=== PATIENT | female | born 1960 | race American Indian/Alaskan Native ===

== ENCOUNTER 2017-05-30 02:27 | Emergency (ER) | payer MEDICAID ==
[2017-05-30] MEDS ORDERED: DUONEB *Not for PRN Use IH ONE ×3 (03:35→06:10)
--- NOTE | 2017-05-30 05:02 | XRay Report ---
FINAL REPORT PROCEDURE: XR CHEST ROUTINE 2V TECHNIQUE: PA and lateral chest radiographs were obtained. CPT 51338 HISTORY: cough COMPARISON: No prior studies are available for comparison. FINDINGS: Heart: Normal. Mediastinum/Vessels: Normal. Lungs/Pleural space: Normal. Bony thorax: No acute osseous abnormality. Other: IMPRESSION: Normal examination.
--- NOTE | 2017-05-30 05:40 | Emergency Department Report ---
- General Chief Complaint: Upper Respiratory Infection Stated Complaint: COUGH, CONGESTION Time Seen by Provider: 05/30/17 05:25 Source: patient Mode of arrival: Ambulatory Limitations: No Limitations - History of Present Illness Initial Comments: 57-year-old female past medical history COPD, smoker presents with complaint of 2 days of persistent cough. Denies chest pain palpitations pleuritic chest pain fevers chills. Patient speaking in full sentences no audible wheezing or stridor. Patient denies nausea or vomiting. States she needs a refill on albuterol inhaler and wants something for persistent cough. Speaking full sentences accompanied by boyfriend at bedside. Patient denies any history of intubations for asthma. States she was last in the ED for asthma/COPD 6 months ago. MD Complaint: cough -: days(s) Severity: moderate Quality: dull Consistency: constant Improves With: nothing - Related Data Home Medications Medication Instructions Recorded Confirmed Last Taken ALBUTEROL Inhaler [ProAir HFA 2 puff IH Q6H 05/30/17 05/30/17 Unknown Inhaler] Flovent Diskus 2 puff IH BID 05/30/17 05/30/17 Unknown Previous Rx's Medication Instructions Recorded Last Taken Type Albuterol Sulfate [Ventolin Hfa] 1 puff IH Q4H PRN #1 hfa.aer.ad 05/30/17 Unknown Rx Benzonatate [Tessalon Perles] 100 mg PO Q8HR PRN #30 capsule 05/30/17 Unknown Rx Levofloxacin [Levaquin TAB] 750 mg PO QDAY #4 tablet 05/30/17 Unknown Rx Phenylephrine/Dm/Acetaminop/GG 10 ml PO Q6H PRN #1 liquid 05/30/17 Unknown Rx [Mucinex Cxlr-Xeb-Ygndncuxic Lq] predniSONE [Deltasone] 40 mg PO QDAY #10 tab 05/30/17 Unknown Rx Allergies Allergy/AdvReac Type Severity Reaction Status Date / Time No Known Allergies Allergy Verified 05/30/17 05:37 ED Review of Systems ROS: Stated complaint: COUGH, CONGESTION Other details as noted in HPI Constitutional: denies: chills, fever Eyes: denies: eye pain, eye discharge, vision change ENT: denies: ear pain, throat pain Respiratory: cough, wheezing. denies: shortness of breath Cardiovascular: denies: chest pain, palpitations Endocrine: no symptoms reported Gastrointestinal: denies: abdominal pain, nausea, diarrhea Genitourinary: denies: urgency, dysuria, discharge Musculoskeletal: denies: back pain, joint swelling, arthralgia Skin: denies: rash, lesions Neurological: denies: headache, weakness, paresthesias Psychiatric: denies: anxiety, depression Hematological/Lymphatic: denies: easy bleeding, easy bruising ED Past Medical Hx - Past Medical History Hx COPD: Yes - Surgical History Additional Surgical History: Right Pinky and right foot hardware - Social History Smoking Status: Current Every Day Smoker Substance Use Type: None - Medications Home Medications: Home Medications Medication Instructions Recorded Confirmed Last Taken Type ALBUTEROL Inhaler [ProAir HFA 2 puff IH Q6H 05/30/17 05/30/17 Unknown History Inhaler] Albuterol Sulfate [Ventolin Hfa] 1 puff IH Q4H PRN #1 hfa.aer.ad 05/30/17 Unknown Rx Benzonatate [Tessalon Perles] 100 mg PO Q8HR PRN #30 capsule 05/30/17 Unknown Rx Flovent Diskus 2 puff IH BID 05/30/17 05/30/17 Unknown History Levofloxacin [Levaquin TAB] 750 mg PO QDAY #4 tablet 05/30/17 Unknown Rx Phenylephrine/Dm/Acetaminop/GG 10 ml PO Q6H PRN #1 liquid 05/30/17 Unknown Rx [Mucinex Aqqc-Jpm-Fkiwfgowve Lq] predniSONE [Deltasone] 40 mg PO QDAY #10 tab 05/30/17 Unknown Rx ED Physical Exam - General Limitations: No Limitations General appearance: alert, in no apparent distress - Head Head exam: Present: atraumatic, normocephalic - Eye Eye exam: Present: normal appearance, PERRL, EOMI - ENT ENT exam: Present: mucous membranes moist - Neck Neck exam: Present: normal inspection - Respiratory Respiratory exam: Present: wheezes (fine wheezing left lung field). Absent: respiratory distress - Cardiovascular Cardiovascular Exam: Present: regular rate, normal rhythm. Absent: systolic murmur, diastolic murmur, rubs, gallop - GI/Abdominal GI/Abdominal exam: Present: soft, normal bowel sounds - Extremities Exam Extremities exam: Present: normal inspection - Back Exam Back exam: Present: normal inspection - Neurological Exam Neurological exam: Present: alert, oriented X3 - Psychiatric Psychiatric exam: Present: normal affect, normal mood - Skin Skin exam: Present: warm, dry, intact, normal color. Absent: rash ED Course Vital Signs 05/30/17 05/30/17 03:46 05:39 Temperature 97.9 F 98.3 F Pulse Rate 87 83 Respiratory 24 19 Rate Blood Pressure 118/57 137/59 O2 Sat by Pulse 96 98 Oximetry ED Medical Decision Making - Medical Decision Making A/P: Acute bronchitis, COPD exacerbatio, reactive airway disease 1-refill on albuterol, course of prednisone, empiric coverage with Levaquin 2-Mucinex when necessary, Tessalon Perles when necessary 3-follow-up with primary care doctor. I advised patient that she needs to quit smoking as she is still actively smoking despite having COPD 4-vital signs stable and patient clinically stable for discharge 5-flu swab negative strep swab negative chest x-ray unremarkable Critical care attestation.: If time is entered above; I have spent that time in minutes in the direct care of this critically ill patient, excluding procedure time. ED Disposition Clinical Impression: Acute bronchitis Qualifiers: Bronchitis organism: unspecified organism Qualified Code(s): J20.9 - Acute bronchitis, unspecified Disposition: DC-01 TO HOME OR SELFCARE Is pt being admited?: No Does the pt Need Aspirin: No Condition: Stable Instructions: Acute Bronchitis (ED), Emphysema (ED), Chronic Obstructive Pulmonary Disease (ED), Chronic Bronchitis (ED) Prescriptions: Albuterol Sulfate [Ventolin Hfa] 1 puff IH Q4H PRN #1 hfa.aer.ad PRN Reason: Wheezing Benzonatate [Tessalon Perles] 100 mg PO Q8HR PRN #30 capsule PRN Reason: Cough Levofloxacin [Levaquin TAB] 750 mg PO QDAY #4 tablet Phenylephrine/Dm/Acetaminop/GG [Mucinex Gitm-Naa-Nepkcfqasl Lq] 10 ml PO Q6H PRN #1 liquid PRN Reason: Cough predniSONE [Deltasone] 40 mg PO QDAY #10 tab Referrals: DEBBI ELENA MD [Primary Care Provider] - 3-5 Days [facility] [Outside] - 3-5 Days [facility] [Outside] - 3-5 Days Forms: Accompanied Note Time of Disposition: 05:45
[2017-05-30] MEDS ORDERED: DELTASONE PO ONE (05:41)
[2017-05-30] MEDS ORDERED: GUAIFENESIN DM SYRUP PO ONE (05:41)
[2017-05-30] MEDS ORDERED: LEVAQUIN PO ONE (05:41)
[2017-05-30 05:44] VITALS: BP 137/59
== END 2017-05-30 06:47 | disposition home or self-care (01) ==
LOC: ED 02:27
DX: J20.9 Acute bronchitis, unspecified (principal); F17.200 Nicotine dependence, unspecified, uncomplicated
CPT/HCPCS: 71046; 87116; 87400; 87430; 94640; 99284; J7512

== ENCOUNTER 2018-08-30 01:07 | Emergency (ER) | payer MEDICAID ==
[2018-08-30 01:47] LABS: Basophils # (Auto) 0.1 K/mm3 (0.0-0.1); Basophils % (Auto) 0.5 % (0.0-1.8); Eosinophils % (Auto) 0.4 % (0.0-4.3); Hematocrit 41.4 % (30.3-42.9); Hemoglobin 13.8 gm/dl (10.1-14.3); Lymphocytes # (Auto) 1.6 K/mm3 (1.2-5.4); Lymphocytes % (Auto) 16.2 % (13.4-35.0); Mean Corpuscular HGB Conc 33 % (30-34); Mean Corpuscular Volume 82 fl (79-97); Monocytes # (Auto) 1.1 K/mm3 (0.0-0.8); Monocytes % (Auto) 11.2 % (0.0-7.3); Platelet Count 213 K/mm3 (140-440); Red Blood Count 5.05 M/mm3 (3.65-5.03)
[2018-08-30 02:12] LABS: Alanine Aminotransferase 16 units/L (7-56); Albumin 4.4 g/dL (3.9-5); BUN/Creatinine Ratio 23; Blood Urea Nitrogen 25 mg/dL (7-17); Calcium 9.1 mg/dL (8.4-10.2); Hemolysis Index 6
[2018-08-30] MEDS ORDERED: MORPHINE IV ONE (03:54)
[2018-08-30] MEDS ORDERED: PEPCID IV ONE (03:54)
[2018-08-30] MEDS ORDERED: NACL 0.9% 1000 ML 1,000 ML IV ONE (03:54)
--- NOTE | 2018-08-30 03:55 | Emergency Department Report ---
ED Abdominal Pain HPI - General Chief Complaint: Abdominal Pain Stated Complaint: INTENSE ABDOMINAL PAIN RIGHT UPPER/MID Time Seen by Provider: 08/30/18 03:51 Source: patient Mode of arrival: Ambulatory Limitations: No Limitations - History of Present Illness Initial Comments: Doses a 58-year-old -[place] female who presents with abdominal pain for 2 days. Patient also complains of nausea without vomiting. Past medical history of COPD, hypertension, emphysema. Patient states it feels like a knife stabbing her in the stomach. Patient reports pain is predominantly on the right upper quadrant. She denies diarrhea, chest pain, low back pain, urinary frequency, urinary urgency, and dysuria. MD Complaint: abdominal pain Onset/Timin -: days(s) Location: RUQ Radiation: none Migration to: no migration Severity: severe Severity scale (0 -10): 10 Quality: stabbing, sharp Consistency: constant Improves With: rest Worsens With: eating, movement Associated Symptoms: nausea. denies: vomiting, diarrhea, fever, chills, constipation, dysuria, hematemesis, hematochezia, melena, hematuria, anorexia, syncope Treatments Prior to Arrival: NSAIDs - Related Data Home Medications Medication Instructions Recorded Confirmed Last Taken ALBUTEROL Inhaler (OR & NICU) 2 puff IH Q6H 05/30/17 05/30/17 Unknown [ProAir HFA Inhaler] Flovent Diskus 2 puff IH BID 05/30/17 05/30/17 Unknown Previous Rx's Medication Instructions Recorded Last Taken Type Albuterol Sulfate [Ventolin Hfa] 1 puff IH Q4H PRN #1 hfa.aer.ad 05/30/17 Unknown Rx Benzonatate [Tessalon Perles] 100 mg PO Q8HR PRN #30 capsule 05/30/17 Unknown Rx Phenylephrine/Dm/Acetaminop/GG 10 ml PO Q6H PRN #1 liquid 05/30/17 Unknown Rx [Mucinex Zgnl-Ytn-Ynsuhttrjg Lq] levoFLOXacin [Levaquin TAB] 750 mg PO QDAY #4 tablet 05/30/17 Unknown Rx predniSONE [Deltasone] 40 mg PO QDAY #10 tab 05/30/17 Unknown Rx Ciprofloxacin HCl [Cipro] 500 mg PO BID #14 tablet 08/30/18 Unknown Rx Phenazopyridine [Pyridium] 200 mg PO TID #6 tab 08/30/18 Unknown Rx traMADol [Ultram 50 MG tab] 50 mg PO Q6HR PRN #12 tablet 08/30/18 Unknown Rx Allergies Allergy/AdvReac Type Severity Reaction Status Date / Time No Known Allergies Allergy Verified 05/30/17 05:37 ED Review of Systems ROS: Stated complaint: INTENSE ABDOMINAL PAIN RIGHT UPPER/MID Other details as noted in HPI Constitutional: denies: chills, fever Respiratory: denies: cough, shortness of breath, wheezing Cardiovascular: denies: chest pain, palpitations Gastrointestinal: abdominal pain, nausea. denies: vomiting, diarrhea Genitourinary: denies: urgency, dysuria, discharge Skin: denies: rash, lesions Neurological: denies: headache, weakness, paresthesias Psychiatric: denies: anxiety, depression ED Past Medical Hx - Past Medical History Previous Medical History?: Yes Hx Hypertension: Yes Hx COPD: Yes Additional medical history: Emphysema - Surgical History Past Surgical History?: Yes Additional Surgical History: Right Pinky and right foot hardware - Social History Smoking Status: Current Every Day Smoker Substance Use Type: Alcohol, Cocaine - Medications Home Medications: Home Medications Medication Instructions Recorded Confirmed Last Taken Type ALBUTEROL Inhaler (OR & NICU) 2 puff IH Q6H 05/30/17 05/30/17 Unknown History [ProAir HFA Inhaler] Albuterol Sulfate [Ventolin Hfa] 1 puff IH Q4H PRN #1 hfa.aer.ad 05/30/17 Unknown Rx Benzonatate [Tessalon Perles] 100 mg PO Q8HR PRN #30 capsule 05/30/17 Unknown Rx Flovent Diskus 2 puff IH BID 05/30/17 05/30/17 Unknown History Phenylephrine/Dm/Acetaminop/GG 10 ml PO Q6H PRN #1 liquid 05/30/17 Unknown Rx [Mucinex Jqso-Mco-Ljikzhywqo Lq] levoFLOXacin [Levaquin TAB] 750 mg PO QDAY #4 tablet 05/30/17 Unknown Rx predniSONE [Deltasone] 40 mg PO QDAY #10 tab 05/30/17 Unknown Rx Ciprofloxacin HCl [Cipro] 500 mg PO BID #14 tablet 08/30/18 Unknown Rx Phenazopyridine [Pyridium] 200 mg PO TID #6 tab 08/30/18 Unknown Rx traMADol [Ultram 50 MG tab] 50 mg PO Q6HR PRN #12 tablet 08/30/18 Unknown Rx ED Physical Exam - General Limitations: No Limitations General appearance: alert, in no apparent distress - Respiratory Respiratory exam: Present: normal lung sounds bilaterally. Absent: respiratory distress - Cardiovascular Cardiovascular Exam: Present: regular rate, normal rhythm. Absent: systolic murmur, diastolic murmur, rubs, gallop - GI/Abdominal GI/Abdominal exam: Present: soft, tenderness (RUQ, LLQ), rebound, normal bowel sounds. Absent: distended, guarding, rigid, organomegaly - Neurological Exam Neurological exam: Present: alert, oriented X3, normal gait - Psychiatric Psychiatric exam: Present: normal affect, normal mood - Skin Skin exam: Present: warm, dry, intact, normal color. Absent: rash ED Course Vital Signs 08/30/18 01:11 Temperature 98.1 F Pulse Rate 86 Respiratory 18 Rate Blood Pressure 148/43 O2 Sat by Pulse 99 Oximetry ED Medical Decision Making - Lab Data Result diagrams: 08/30/18 01:32 08/30/18 01:32 Lab Results 08/30/18 08/30/18 08/30/18 Range/Units 01:32 01:32 03:21 WBC 9.7 (4.5-11.0) K/mm3 RBC 5.05 H (3.65-5.03) M/mm3 Hgb 13.8 (10.1-14.3) gm/dl Hct 41.4 (30.3-42.9) % MCV 82 (79-97) fl MCH 27 L (28-32) pg MCHC 33 (30-34) % RDW 14.0 (13.2-15.2) % Plt Count 213 (140-440) K/mm3 Lymph % (Auto) 16.2 (13.4-35.0) % [place] % (Auto) 11.2 H (0.0-7.3) % Eos % (Auto) 0.4 (0.0-4.3) % Baso % (Auto) 0.5 (0.0-1.8) % Lymph # 1.6 (1.2-5.4) K/mm3 [place] # 1.1 H (0.0-0.8) K/mm3 Eos # 0.0 (0.0-0.4) K/mm3 Baso # 0.1 (0.0-0.1) K/mm3 Seg Neutrophils % 71.7 H (40.0-70.0) % Seg Neutrophils # 6.9 (1.8-7.7) K/mm3 Sodium 140 (137-145) mmol/L Potassium 4.4 (3.6-5.0) mmol/L Chloride 102.7 (98-107) mmol/L Carbon Dioxide 26 (22-30) mmol/L Anion Gap 16 mmol/L BUN 25 H (7-17) mg/dL Creatinine 1.1 (0.7-1.2) mg/dL Estimated GFR > 60 ml/min BUN/Creatinine Ratio 23 % Glucose 90 (65-100) mg/dL Calcium 9.1 (8.4-10.2) mg/dL Total Bilirubin 0.30 (0.1-1.2) mg/dL AST 21 (5-40) units/L ALT 16 (7-56) units/L Alkaline Phosphatase 87 (35-129) units/L Total Protein 7.0 (6.3-8.2) g/dL Albumin 4.4 (3.9-5) g/dL Albumin/Globulin Ratio 1.7 % Urine Color Yellow (Yellow) Urine Turbidity Slightly-cloudy (Clear) Urine pH 5.0 (5.0-7.0) Ur Specific Tyler 1.033 H (1.003-1.030) Urine Protein <15 mg/dl (Negative) mg/dL Urine Glucose (UA) 50 (Negative) mg/dL Urine Ketones Neg (Negative) mg/dL Urine Blood Mod (Negative) Urine Nitrite Neg (Negative) Urine Bilirubin Neg (Negative) Urine Urobilinogen < 2.0 (<2.0) mg/dL Ur Leukocyte Esterase Lg (Negative) Urine WBC (Auto) 87.0 H (0.0-6.0) /HPF Urine RBC (Auto) 6.0 (0.0-6.0) /HPF U Epithel Cells (Auto) 3.0 (0-13.0) /HPF Urine Bacteria (Auto) 1+ (Negative) /HPF Urine Mucus Few /HPF - Radiology Data Radiology results: report reviewed PROCEDURE: CT ABDOMEN PELVIS WO CON TECHNIQUE: Computerized axial tomography of the abdomen and pelvis was performed after the IV injection of iodinated nonionic contrast. CT DOSE LENGTH PRODUCT: mGycm HISTORY: RUQ LUQ COMPARISONS: None . FINDINGS: Visualized lower thorax: No significant abnormality. Liver: Normal size and attenuation. Spleen: Normal size and attenuation. Gallbladder and biliary system: Normal. Pancreas: Normal. Adrenals: Normal. Kidneys: There are no kidney stones or ureteral stones. There is no hydronephrosis.. GI tract: There is no bowel obstruction, colitis or enteritis. The appendix is normal. . Lymph nodes and mesentery: Normal. Vasculature: Normal.. Bladder: Normal. Reproductive organs: There has been a hysterectomy. Peritoneum: There is no ascites, free air, abscess or adenopathy.. Musculoskeletal structures: No significant abnormality. IMPRESSION: There are no kidney stones or ureteral stones. There is no hydronephrosis.. There is no bowel obstruction, colitis or enteritis. The appendix is normal. . There has been a hysterectomy. There is no ascites, free air, abscess or adenopathy.. . - Medical Decision Making Patient is stable and was examined by me. Vitals stable. Obtained CMP, CBC, UA, and CT of abdomen. Prerenal failure. IV site obtained. Given morphine, Pepcid, and normal saline bolus. CT There are no kidney stones or ureteral stones. There is no hydronephrosis.. There is no bowel obstruction, colitis or enteritis. The appendix is normal. There has been a hysterectomy. There is no ascites, free air, abscess or adenopathy. Pyelonephritis. Given Levaquin 500 mg by mouth once while in ER. Start Cipro, tramadol, and Pyridium. Discussed plan with patient and agreed to plan. Discharged home in stable condition. Follow up with PCP in 2-3 days. Critical care attestation.: If time is entered above; I have spent that time in minutes in the direct care of this critically ill patient, excluding procedure time. ED Disposition Clinical Impression: Acute prerenal failure, Pyelonephritis Abdominal pain Qualifiers: Abdominal location: right upper quadrant Qualified Code(s): R10.11 - Right upper quadrant pain Disposition: TO HOME OR SELFCARE Is pt being admited?: No Does the pt Need Aspirin: No Condition: Stable Instructions: Abdominal Pain (ED), Flank Pain (ED), Acute Pyelonephritis (ED) Additional Instructions: Increase fluid intake to 1L to 2L daily. Complete full course of antibiotics as prescribed. Avoid drinking alcohol while taking antibiotics and for 24 hours after completion. Follow up with primary care provider in 2-3 days. Prescriptions: Ciprofloxacin HCl [Cipro] 500 mg PO BID #14 tablet Phenazopyridine [Pyridium] 200 mg PO TID #6 tab traMADol [Ultram 50 MG tab] 50 mg PO Q6HR PRN #12 tablet PRN Reason: Pain Referrals: DANYELLE VEGA MD [Primary Care Provider] - 3-5 Days [facility] [Provider Group] - 3-5 Days [facility] [Outside] - 3-5 Days Forms: Work/School Release Form(ED) Time of Disposition: 06:14
[2018-08-30 04:05] LABS: Bacteria,Urine 1+ /HPF (Negative); Bilirubin,Urine NEG (Negative); Blood,Urine MOD (Negative); Color,Urine Yellow (Yellow); Mucus,Urine FEW /HPF; Protein,Urine <15 mg/dL mg/dL (Negative); Urobilinogen,Urine < 2.0 mg/dL (<2.0)
--- NOTE | 2018-08-30 05:54 | Cat Scan Report ---
PROCEDURE: CT ABDOMEN PELVIS WO CON TECHNIQUE: Computerized axial tomography of the abdomen and pelvis was performed after the IV inject ion of iodinated nonionic contrast. CT DOSE LENGTH PRODUCT: mGycm HISTORY: RUQ LUQ COMPARISONS: None . FINDINGS: Visualized lower thorax: No significant abnormality. Liver: Normal size and attenuation. Spleen: Normal size and attenuation. Gallbladder and biliary system: Normal. Pancreas: Normal. Adrenals: Normal. Kidneys: There are no kidney stones or ureteral stones. There is no hydronephrosis.. GI tract: There is no bowel obstruction, colitis or enteritis. The appendix is normal. . Lymph nodes and mesentery: Normal. Vasculature: Normal.. Bladder: Normal. Reproductive organs: There has been a hysterectomy. Peritoneum: There is no ascites, free air, abscess or adenopathy.. Musculoskeletal structures: No significant abnormality. IMPRESSION: There are no kidney stones or ureteral stones. There is no hydronephrosis.. There is no bowel obstruction, colitis or enteritis. The appendix is normal. . There has been a hysterectomy. There is no ascites, free air, abscess or adenopathy.. . This document is electronically signed by Raf Saab MD., August 30 2018 05:52:20 AM ET
[2018-08-30] MEDS ORDERED: LEVAQUIN PO ONE (06:19)
[2018-08-30 07:27] VITALS: BP 136/78
== END 2018-08-30 06:30 | disposition home or self-care (01) ==
LOC: ED 01:07
DX: N12 Tubulo-interstitial nephritis, not specified as acute or chronic (principal); N17.8 Other acute kidney failure; I10 Essential (primary) hypertension; J44.9 Chronic obstructive pulmonary disease, unspecified; F17.200 Nicotine dependence, unspecified, uncomplicated; F14.90 Cocaine use, unspecified, uncomplicated
CPT/HCPCS: 36415; 74176; 80053; 81001; 85025; 96374; 96375; 99284; J2270; J7030

== ENCOUNTER 2018-09-27 09:47 | Outpatient (CLI) | payer MEDICAID ==
[2018-09-27 11:18] LABS: Bacteria,Urine 1+ /HPF (Negative); Bilirubin,Urine NEG (Negative); Blood,Urine MOD (Negative); Color,Urine Yellow (Yellow); Mucus,Urine FEW /HPF; Protein,Urine <15 mg/dL mg/dL (Negative); Urobilinogen,Urine < 2.0 mg/dL (<2.0)
[2018-09-27 11:33] LABS: Amphetamine Screen,Urine PRESUMPTIVE NEGATIVE; Benzodiazepines Screen,Urine PRESUMPTIVE NEGATIVE; Cannabinoid Screen,Urine PRESUMPTIVE NEGATIVE; Cocaine Screen,Urine PRESUMPTIVE NEGATIVE; Methadone Screen,Urine PRESUMPTIVE NEGATIVE; Opiate Screen,Urine PRESUMPTIVE NEGATIVE
[2018-09-27 11:45] LABS: Alanine Aminotransferase 15 units/L (7-56); Albumin 4.6 g/dL (3.9-5); BUN/Creatinine Ratio 29; Blood Urea Nitrogen 23 mg/dL (7-17); Calcium 9.6 mg/dL (8.4-10.2); Chol/HDL Ratio 3.42 %; HDL Cholesterol 50 mg/dL (40-59); Hemolysis Index 4; LDL Cholesterol,Direct 120 mg/dL (50-130)
[2018-10-01 15:02] LABS: Vitamin D, 25-OH, D2 <4 ng/mL
== END 2018-09-27 09:48 | disposition home or self-care (01) ==
LOC: LAB 09:47
PROVIDERS: ATTEND Internal Medicine
DX: R73.9 Hyperglycemia, unspecified (principal); N39.0 Urinary tract infection, site not specified; I10 Essential (primary) hypertension; F19.10 Other psychoactive substance abuse, uncomplicated; J44.9 Chronic obstructive pulmonary disease, unspecified; Z90.710 Acquired absence of both cervix and uterus
CPT/HCPCS: 36415; 80053; 80061; 80307; 81001; 82306; 82607; 83036; 84443; 87806

== ENCOUNTER 2019-01-13 10:05 | Outpatient (CLI) | payer MEDICAID | END 2019-01-13 10:06 | disposition home or self-care (01) | LOC: LAB 10:05 | PROVIDERS: ATTEND Internal Medicine | DX: R73.03 Prediabetes (principal); E87.5 Hyperkalemia; I10 Essential (primary) hypertension; J44.9 Chronic obstructive pulmonary disease, unspecified; Z90.710 Acquired absence of both cervix and uterus | CPT/HCPCS: 36415; 83036; 84132 ==

== ENCOUNTER 2020-01-27 06:54 | Day surgery (SDC) | payer MEDICAID ==
[~2020-01-27 06:54] MED LIST: SODIUM CHLORIDE 0.9% 1000 ML 1,000 ML IV SCH
--- NOTE | 2020-01-27 07:52 | Anesthesia Day of Surgery ---
Anesthesia Day of Surgery - Day of Surgery Patient Examined: Yes Patient H&P Reviewed: Yes Patient is NPO: Yes
--- NOTE | 2020-01-27 07:53 | Anesthesia Consultation ---
Anesthesia Consult and Med Hx Date of service: 01/27/20 - Airway Anesthetic Teeth Evaluation: Edentulous ROM Head & Neck: Adequate Mental/Hyoid Distance: Adequate Mallampati Class: Class II Intubation Access Assessment: Good - Pre-Operative Health Status ASA Pre-Surgery Classification: ASA3 Proposed Anesthetic Plan: MAC - Pulmonary Hx Smoking: Yes COPD: Yes - Cardiovascular System Hx Hypertension: Yes - Central Nervous System Hx Back Pain: Yes Hx Psychiatric Problems: Yes (Anxiety/Depression) - Gastrointestinal Hx Gastroesophageal Reflux Disease: Yes
[2020-01-27] MEDS ORDERED: propofoL 200 MG/20 ML VIAL IV ONE (09:03)
--- NOTE | 2020-01-27 09:29 | Procedure Note ---
Date of procedure: 01/27/20 Pre-op diagnosis: Epigastric Pain/ F/H/o Cancer (stomach cancer-mother) Post-op diagnosis: other (Mild to Moderate Emelyn Esophagitis/ Mild to Moderate Erosive Esophagitis/Gastric Erosion and Gastritis/Duodenitis/Small Duodenal Ulcer) Procedure: EGD with Biopsy [place] [facility] [place]: NADIYA KESSLER Estimated blood loss: minimal Pathology: list Specimen disposition: to lab Condition: stable Disposition: same day (Treat with fluconazole and PPI. Avoid aspirin and NSAID, otherwise resume home medication. Follow up in 1 to 2 weeks.)
--- NOTE | 2020-01-27 09:47 | Operative Report ---
PROCEDURE: Esophagogastroduodenoscopy with biopsy. INDICATIONS: This is a 59-year-old -[place] female with a history of smoking, strong family history of cancer. Her mother had stomach cancer. Aunt had ovarian cancer. She states that she had a colonoscopy done a year ago, which was essentially unremarkable. Lately, she has been having epigastric pain and discomfort. EGD was done to assess for the problem. DESCRIPTION OF PROCEDURE: The procedure was done after getting informed consent with MAC anesthesia. Instrument was passed through the hypopharynx into the esophagus, which showed iugz-[id number] erosive esophagitis as well as rumj-xy-vzisqaic Emelyn esophagitis. Photo documentation and biopsy was done from the distal esophagus. The stomach showed antral erosion and gastritis. Biopsy was done from the gastric antrum, gastric body and from the angular incisura to rule out for H. pylori and atrophic gastritis. The pylorus was patent. The duodenum and the bulb showed a small duodenal ulcer and duodenitis. Second portion appeared normal. ASSESSMENT: Epigastric pain, family history of cancer. Mother had stomach cancer, [id number] Emelyn esophagitis, mcca-oh-nvyucxyh erosive esophagitis, small duodenal ulcer, duodenitis and gastric erosion. PLAN: To treat the patient with PPI. Also, to treat the patient with fluconazole. Have the patient to avoid aspirin and aspirin-related products for the next 5 days and follow up in the office in 1-2 weeks' time. The procedure was done in the GI lab with the assistance of the GI lab team, which included JUAN, Sandra Carpenter; Wiliam gutierrez and with the assistance of anesthesia. JOB# [id number] SHEKHAR/AARON
[2020-01-27 09:59] VITALS: BP 126/60
--- NOTE | 2020-01-27 10:00 | Post Anesthesia Evaluation ---
- Post Anesthesia Evaluation Patient Participated: Yes Airway Patent: Yes Stable Respiratory Function: Yes Nausea/Vomiting: No Temp > 96.8F: Yes Pain Manageable: Yes Adequeate Hydration: Yes Anesthesia Complications: No Block Receding Appropriately: Not Applicable Patient on Ventilator: No
== END 2020-01-27 10:20 | disposition home or self-care (01) ==
LOC: GIO 06:54
DX: R10.13 Epigastric pain (principal); R14.0 Abdominal distension (gaseous); K29.80 Duodenitis without bleeding; B37.81 Candidal esophagitis; G62.9 Polyneuropathy, unspecified; I10 Essential (primary) hypertension; K21.0 Gastro-esophageal reflux disease with esophagitis; J44.9 Chronic obstructive pulmonary disease, unspecified; G47.30 Sleep apnea, unspecified; F41.9 Anxiety disorder, unspecified; F32.9 Major depressive disorder, single episode, unspecified; Z80.0 Family history of malignant neoplasm of digestive organs; Z79.899 Other long term (current) drug therapy; Z90.710 Acquired absence of both cervix and uterus; Z98.890 Other specified postprocedural states
CPT/HCPCS: 43239; 88305; 88342; J2704; J7030

== ENCOUNTER 2020-04-16 13:06 | Outpatient (CLI) | payer MEDICAID ==
--- NOTE | 2020-04-16 14:30 | XRay Report ---
CERVICAL SPINE 6 VIEWS INDICATION / CLINICAL INFORMATION: M54.2 CERVICALGIA. COMPARISON: None available. FINDINGS: VERTEBRAE: No fracture. No significant malalignment. DISC SPACES:Moderate discogenic degenerative disease C5-6 PREVERTEBRAL SOFT TISSUES:No significant abnormality. ADDITIONAL FINDINGS: Mild bilateral osseous neuroforaminal narrowing C5-6 IMPRESSION: 1. No significant abnormality. Signer Name: Holden Fisher MD Signed: 04/16/2020 2:26 PM Workstation Name: [id number]
--- NOTE | 2020-04-16 14:30 | XRay Report ---
RIGHT TIBIA-FIBULA 2 VIEW(S) INDICATION / CLINICAL INFORMATION: PAIN COMPARISON: None available. FINDINGS: BONES / JOINT(S): No acute fracture or subluxation. Old healed right distal tibial fracture with late ral compression plate and screws No significant arthritis. SOFT TISSUES: No significant abnormality. ADDITIONAL FINDINGS: None. Signer Name: Holden Fisher MD Signed: 04/16/2020 2:25 PM Workstation Name: [id number]
--- NOTE | 2020-04-16 14:31 | XRay Report ---
RIGHT ANKLE 3 VIEW(S) INDICATION / CLINICAL INFORMATION: PAIN COMPARISON: None available. FINDINGS: BONES / JOINT(S): No acute fracture or subluxation. Old healed fracture right distal tibia with anter ior lateral curve compression plate and screws. No significant arthritis. SOFT TISSUES: No significant abnormality. ADDITIONAL FINDINGS: None. Signer Name: Holden Fisher MD Signed: 04/16/2020 2:27 PM Workstation Name: [id number]
--- NOTE | 2020-04-16 14:32 | XRay Report ---
LUMBAR SPINE 5 VIEWS INDICATION / CLINICAL INFORMATION: M54.5 LOW BACK PAIN. COMPARISON: None available. FINDINGS: VERTEBRAE: No fracture. No significant malalignment. DISC SPACES:Mild discogenic degenerative disease L3-5 FACET JOINTS:No significant abnormality. ADDITIONAL FINDINGS: None. IMPRESSION: 1. No significant abnormality. Signer Name: Holden Fisher MD Signed: 04/16/2020 2:27 PM Workstation Name: [id number]
== END 2020-04-16 13:07 | disposition home or self-care (01) ==
LOC: XRAY 13:06
PROVIDERS: ATTEND Orthopaedic Surgery
DX: M51.36 Other intervertebral disc degeneration, lumbar region (principal); M50.322 Other cervical disc degeneration at C5-C6 level; M48.02 Spinal stenosis, cervical region; M54.5 Low back pain; M79.661 Pain in right lower leg
CPT/HCPCS: 72050; 72110

== ENCOUNTER 2020-04-18 09:23 | Outpatient (CLI) | payer MEDICAID | END 2020-04-18 09:24 | disposition home or self-care (01) | LOC: MAMMO 09:23 | PROVIDERS: ATTEND Internal Medicine | DX: Z12.31 Encounter for screening mammogram for malignant neoplasm of breast (principal) | CPT/HCPCS: 77067 ==

== ENCOUNTER 2020-05-04 11:19 | Day surgery (SDC) | payer MEDICAID ==
[2020-05-04] MEDS ORDERED: ALBUTEROL 2.5 MG/3 ML NEBU IH PRN (12:19)
[2020-05-04] MEDS ORDERED: fentaNYL 100 MCG/2 ML INJ IV ONE (12:20)
[2020-05-04] MEDS ORDERED: SODIUM CHLORIDE 0.9% 1000 ML 1,000 ML ONE (12:40)
[2020-05-04] MEDS ORDERED: SODIUM CHLORIDE 0.9% 1000 ML 1,000 ML IV SCH (13:00)
[2020-05-04] MEDS ORDERED: propofoL 200 MG/20 ML VIAL IV ONE (13:36)
--- NOTE | 2020-05-04 13:59 | Procedure Note ---
Date of procedure: 05/04/20 Pre-op diagnosis: Dysphagia Post-op diagnosis: other (Mild,Benign esophageal Stenosis/ Mild to Moderate Erosive Esophagitis/ Gastritis) Procedure: EGD with Biopsy and s/p Balloon dilation (20 mm Ballon) Anesthesia: MAC Surgeon: NADIYA KESSLER Estimated blood loss: minimal Pathology: list Specimen disposition: to lab Condition: stable Disposition: same day (Treat with PPI and reglan. Advice the patient to refrain from smoking and avoid aspirin and NSAID for 5 days otherwise resume home medication and follow up in 1 to 2 weeks ([phone]).)
--- NOTE | 2020-05-04 14:17 | Anesthesia Day of Surgery ---
Anesthesia Day of Surgery - Day of Surgery Patient Examined: Yes Patient H&P Reviewed: Yes Patient is NPO: Yes
--- NOTE | 2020-05-04 14:17 | Anesthesia Consultation ---
Anesthesia Consult and Med Hx Date of service: 05/04/20 - Airway Anesthetic Teeth Evaluation: Good ROM Head & Neck: Adequate Mental/Hyoid Distance: Adequate Mallampati Class: Class III Intubation Access Assessment: Possibly Difficult - Pulmonary Exam CTA: No (mild diffuse wheezing) - Cardiac Exam Cardiac Exam: RRR - Pre-Operative Health Status ASA Pre-Surgery Classification: ASA3 Proposed Anesthetic Plan: MAC - Pulmonary Hx Smoking: Yes Hx Respiratory Symptoms: Yes COPD: Yes (maintenance and rescure inhalers) Home Oxygen Therapy: No Hx Sleep Apnea: (HIGH RISK) - Cardiovascular System Hx Hypertension: Yes - Central Nervous System CVA: No Hx Back Pain: Yes Hx Psychiatric Problems: Yes (Anxiety/Depression) - Gastrointestinal Hx Gastroesophageal Reflux Disease: Yes (dysphagia leading to hoarseness) - Endocrine Hx Renal Disease: No Hx Liver Disease: No Hx Insulin Dependent Diabetes: No Hx Non-Insulin Dependent Diabetes: No Hx Thyroid Disease: No - Additional Comments Anesthesia Medical History Comments: Will give albuterol neb pre-procedure
--- NOTE | 2020-05-04 14:19 | Operative Report ---
PROCEDURE: Esophagogastroduodenoscopy with biopsy and esophageal dilation. INDICATIONS: This is a 60-year-old -[place] female with a history of smoking, who had an EGD done a few months earlier and was noted to have Emelyn esophagitis for which the patient had been treated. The patient is still complaining of dysphagia. EGD was done to do an esophageal dilation if needed. Procedure was done with MAC anesthesia. DESCRIPTION OF PROCEDURE: Instrument was passed through the hypopharynx into the esophagus, which showed mild benign esophageal stenosis and gbtk-[id number] erosive esophagitis. The esophagus was dilated with a 20 mm balloon that was maintained for a minute at the end of the procedure. Biopsy was done from the distal as well as the mid esophagus to assess for the severity of the erosive esophagitis and to assess for any eosinophilic esophagitis. The stomach showed gastritis. The Pylorus was patent. Duodenum in the first and second portion appeared normal. Biopsy was done from the gastric antrum, the gastric body and angular incisura to rule out for H. pylori and atrophic gastritis. There was minimal bleeding associated with the procedure. No complications associated with the procedure. ASSESSMENT: Dysphagia secondary to mild benign esophageal stenosis, status post esophageal dilation with a 20 mm balloon, mild to moderate erosive esophagitis, gastritis. PLAN: To treat the patient with PPI as well as Reglan, have the patient avoid aspirin and aspirin-related products for the next few days. Follow up in the office in 1-2 weeks' time. The patient will also be advised to refrain from smoking. The procedure was done in the GI lab with assistance of the GI lab team, which included JUAN Carpenter, matt Scott and with assistance of Anesthesia. JOB# [id number] SHEKHAR/AARON
[2020-05-04 14:30] VITALS: BP 122/55
--- NOTE | 2020-05-04 15:22 | Post Anesthesia Evaluation ---
- Post Anesthesia Evaluation Patient Participated: Yes Airway Patent: Yes Stable Respiratory Function: Yes Nausea/Vomiting: No Temp > 96.8F: Yes Pain Manageable: Yes Adequeate Hydration: Yes Anesthesia Complications: No
== END 2020-05-04 11:20 | disposition home or self-care (01) ==
LOC: GIO 11:19
DX: R13.10 Dysphagia, unspecified (principal); K22.2 Esophageal obstruction; K21.00 Gastro-esophageal reflux disease with esophagitis, without bleeding; K31.89 Other diseases of stomach and duodenum; K59.09 Other constipation; F17.210 Nicotine dependence, cigarettes, uncomplicated; F41.9 Anxiety disorder, unspecified; K29.70 Gastritis, unspecified, without bleeding; G62.9 Polyneuropathy, unspecified; I10 Essential (primary) hypertension; J44.9 Chronic obstructive pulmonary disease, unspecified; F32.9 Major depressive disorder, single episode, unspecified; Z98.890 Other specified postprocedural states; Z79.899 Other long term (current) drug therapy; Z90.710 Acquired absence of both cervix and uterus; Z80.0 Family history of malignant neoplasm of digestive organs
CPT/HCPCS: 43239; 43249; 88305; 88342; J2704; J7030

== ENCOUNTER 2020-05-11 10:50 | Outpatient (CLI) | payer MEDICAID ==
--- NOTE | 2020-05-11 13:04 | Ultrasound Report ---
ULTRASOUND BREAST RIGHT LIMITED, 05/11/2020 CLINICAL INFORMATION / INDICATION: ABN MAMMO. Patient presents as a callback from screening mammogram for further evaluation of a nodular density in the right breast. TECHNIQUE: Targeted ultrasound evaluation was performed of the area of interest. COMPARISON: Prior mammogram 04/18/2020 FINDINGS: Targeted ultrasound of the right breast reveals a probably benign cluster of cysts in the 2:00 positi on located 3 cm from the nipple measuring up to 11 x 10 x 5 mm, a probable focally dilated duct in th e 5:00 subareolar position measuring up to 14 x 4 mm, and an additional probable focally dilated duct in the 4:00 position located 1 cm from the nipple measuring up to 10 x 4 mm. It is uncertain which o f these findings accounts for the mammographic finding. IMPRESSION: 1. There is a probably benign cluster of cysts and two probably benign focally dilated ducts seen in the right breast. It is uncertain which of these accounts for the mammographic finding. Recommend rig ht diagnostic mammogram and right breast ultrasound in 6 months to ensure stability. Follow up recommendation: Short term follow up in 6 months. BI-RADS Category 3: Probably Benign. Followup in 6 months. A normal or "negative" report should not preclude biopsy or follow-up of a clinically suspicious find ing. Signer Name: Florence Armas MD Signed: 05/11/2020 12:59 PM Workstation Name: [id number]
== END 2020-05-11 10:51 | disposition home or self-care (01) ==
LOC: MAMMO 10:50
PROVIDERS: ATTEND Internal Medicine
DX: N60.01 Solitary cyst of right breast (principal)

== ENCOUNTER 2020-07-17 10:17 | Outpatient (CLI) | payer MEDICAID ==
--- NOTE | 2020-07-17 11:30 | XRay Report ---
XR shoulder 2+V LT INDICATION / CLINICAL INFORMATION: LEFT SHOULDER PAIN. COMPARISON: None available. FINDINGS: No acute fracture. Normal alignment. Joint spaces are preserved. No destructive osseous lesion or s uspicious periosteal reaction. Impression: 1.No significant osseous abnormality. Signer Name: Byron Tom MD Signed: 07/17/2020 11:25 AM Workstation Name: [id number]
== END 2020-07-17 10:18 | disposition home or self-care (01) ==
LOC: XRAY 10:17
PROVIDERS: ATTEND Orthopaedic Surgery
DX: M75.42 Impingement syndrome of left shoulder (principal)

== ENCOUNTER 2020-11-14 10:36 | Outpatient (CLI) | payer MEDICAID ==
[2020-11-14 11:19] LABS: Basophils # (Auto) 0.1 K/mm3 (0.0-0.1); Basophils % (Auto) 1.2 % (0.0-1.8); Eosinophils % (Auto) 0.5 % (0.0-4.3); Hematocrit 47.3 % (30.3-42.9); Hemoglobin 15.5 gm/dl (10.1-14.3); Lymphocytes # (Auto) 1.7 K/mm3 (1.2-5.4); Lymphocytes % (Auto) 24.1 % (13.4-35.0); Mean Corpuscular HGB Conc 33 % (30-34); Mean Corpuscular Volume 81 fl (79-97); Monocytes # (Auto) 0.6 K/mm3 (0.0-0.8); Monocytes % (Auto) 8.4 % (0.0-7.3); Platelet Count 241 K/mm3 (140-440); Red Blood Count 5.85 M/mm3 (3.65-5.03); Red Cell Distribution Width 14.8 % (13.2-15.2)
[2020-11-14 11:40] LABS: Alanine Aminotransferase 12 units/L (7-56); Albumin 4.5 g/dL (3.9-5); BUN/Creatinine Ratio 18; Blood Urea Nitrogen 16 mg/dL (7-17); Calcium 9.8 mg/dL (8.4-10.2); Chol/HDL Ratio 3.77 %; HDL Cholesterol 44 mg/dL (40-59); Hemolysis Index 2; LDL Cholesterol,Direct 115 mg/dL (50-130)
[2020-11-14 11:46] LABS: Bacteria,Urine 1+ /HPF (Negative); Bilirubin,Urine NEG (Negative); Blood,Urine SM (Negative); Color,Urine Yellow (Yellow); Mucus,Urine 1+ /HPF; Protein,Urine <15 mg/dL mg/dL (Negative); Urobilinogen,Urine < 2.0 mg/dL (<2.0)
[2020-11-17 15:09] LABS: Vitamin D, 25-OH, D2 8 ng/mL
== END 2020-11-14 10:37 | disposition home or self-care (01) ==
LOC: LAB 10:36
PROVIDERS: ATTEND Internal Medicine
DX: Z00.00 Encounter for general adult medical examination without abnormal findings (principal); R73.03 Prediabetes; I10 Essential (primary) hypertension; Z13.29 Encounter for screening for other suspected endocrine disorder; I70.213 Atherosclerosis of native arteries of extremities with intermittent claudication, bilateral legs; N39.0 Urinary tract infection, site not specified; E55.9 Vitamin D deficiency, unspecified
CPT/HCPCS: 36415; 80053; 80061; 81001; 82306; 83036; 84443; 85025

== ENCOUNTER 2021-07-12 13:31 | Outpatient (CLI) | payer MEDICAID | END 2021-07-12 13:32 | disposition home or self-care (01) | LOC: LAB 13:31 | PROVIDERS: ATTEND Internal Medicine | DX: Z00.00 Encounter for general adult medical examination without abnormal findings (principal); R73.03 Prediabetes; E55.9 Vitamin D deficiency, unspecified | CPT/HCPCS: 36415; 82306; 83036 ==

== ENCOUNTER 2021-08-15 21:09 | Emergency (ER) | payer MEDICAID ==
[2021-08-15 22:13] VITALS: BP 130/52
== END 2021-08-16 13:32 | disposition left against medical advice (07) ==
LOC: ED 21:09
DX: M25.561 Pain in right knee (principal); M25.562 Pain in left knee; Z53.21 Procedure and treatment not carried out due to patient leaving prior to being seen by health care provider; X50.1XXA Overexertion from prolonged static or awkward postures, initial encounter; Y93.89 Activity, other specified; Y92.89 Other specified places as the place of occurrence of the external cause; Y99.8 Other external cause status

== ENCOUNTER 2021-08-26 08:40 | Outpatient (CLI) | payer MEDICAID ==
--- NOTE | 2021-08-26 10:04 | XRay Report ---
Right knee 2 views INDICATION: Fall FINDINGS: There is tricompartmental degenerative change. Joint spaces seen throughout most significan t patellofemoral joint medial joint compartment. Marginal osteophytes are identified. Small joint eff usion. IMPRESSION: Tricompartmental degenerative changes small joint effusion. No displaced fractures seen. Signer Name: Missael Carrion MD Signed: 08/26/2021 9:59 AM Workstation Name: [id number]
--- NOTE | 2021-08-26 10:22 | XRay Report ---
Right hip-2 views INDICATION: RIGHT HIP PAIN. COMPARISON: None available. IMPRESSION: No acute osseous abnormality. Normal alignment. No significant DJD. Soft tissues are u nremarkable. Signer Name: Hebert Allen MD Signed: 08/26/2021 10:18 AM Workstation Name: [id number]
[2021-08-26 10:48] LABS: Bilirubin,Urine NEG (Negative); Blood,Urine SM (Negative); Color,Urine Yellow (Yellow); Protein,Urine <15 mg/dL mg/dL (Negative); Urobilinogen,Urine < 2.0 mg/dL (<2.0)
[2021-08-26 10:50] LABS: Blood Urea Nitrogen 17 mg/dL (7-17); Calcium 9.4 mg/dL (8.4-10.2); Hemolysis Index 2
[2021-08-26 10:59] LABS: RBC,Urine < 1.0 /HPF (0.0-6.0); WBC,Urine < 1.0 /HPF (0.0-6.0)
[2021-08-26 11:06] LABS: BUN/Creatinine Ratio 24
== END 2021-08-26 08:41 | disposition home or self-care (01) ==
LOC: XRAY 08:40
PROVIDERS: ATTEND Internal Medicine
DX: M17.11 Unilateral primary osteoarthritis, right knee (principal); M25.761 Osteophyte, right knee; M25.461 Effusion, right knee; I10 Essential (primary) hypertension; M25.551 Pain in right hip
CPT/HCPCS: 36415; 80048; 81001

== ENCOUNTER 2021-12-30 09:07 | Outpatient (CLI) | payer MEDICAID ==
[2021-12-30 10:00] LABS: Alanine Aminotransferase 13 units/L (7-56); Albumin 4.7 g/dL (3.9-5); Blood Urea Nitrogen 19 mg/dL (7-17); Calcium 9.9 mg/dL (8.4-10.2); Chol/HDL Ratio 2.98 %; HDL Cholesterol 70 mg/dL (40-59); Hemolysis Index 2; LDL Cholesterol,Direct 127 mg/dL (50-130)
[2021-12-30 10:02] LABS: Basophils % (Auto) 0.5 % (0.0-1.8); Eosinophils # (Auto) 0.1 K/mm3 (0.0-0.4); Eosinophils % (Auto) 1.1 % (0.0-4.3); Hematocrit 48.2 % (30.3-42.9); Hemoglobin 15.7 gm/dl (10.1-14.3); Lymphocytes # (Auto) 2.3 K/mm3 (1.2-5.4); Lymphocytes % (Auto) 27.1 % (13.4-35.0); Mean Corpuscular HGB Conc 33 % (30-34); Mean Corpuscular Volume 82 fl (79-97); Monocytes # (Auto) 0.6 K/mm3 (0.0-0.8); Monocytes % (Auto) 7.5 % (0.0-7.3); Platelet Count 245 K/mm3 (140-440); Red Blood Count 5.87 M/mm3 (3.65-5.03); Red Cell Distribution Width 14.2 % (13.2-15.2)
[2021-12-30 10:04] LABS: BUN/Creatinine Ratio 27
[2021-12-30 13:20] LABS: Mucus,Urine FEW /HPF; WBC,Urine < 1.0 /HPF (0.0-6.0)
[2021-12-30 13:44] LABS: Bilirubin,Urine Negative (Negative); Blood,Urine 2+ (Negative); Color,Urine Yellow (Yellow)
[2021-12-30 13:45] LABS: Protein,Urine <15 mg/dL mg/dL (Negative)
== END 2021-12-30 09:08 | disposition home or self-care (01) ==
LOC: LAB 09:07
PROVIDERS: ATTEND Internal Medicine
DX: Z00.00 Encounter for general adult medical examination without abnormal findings (principal); I10 Essential (primary) hypertension; R53.83 Other fatigue; R19.00 Intra-abdominal and pelvic swelling, mass and lump, unspecified site; R73.03 Prediabetes; I70.213 Atherosclerosis of native arteries of extremities with intermittent claudication, bilateral legs
CPT/HCPCS: 36415; 80053; 80061; 81001; 82306; 83036; 83690; 84443; 85025

== ENCOUNTER 2022-01-10 07:37 | Day surgery (SDC) | payer MEDICAID ==
[2022-01-10] MEDS ORDERED: ALBUTEROL 2.5 MG/3 ML NEBU IH ONE (07:55)
--- NOTE | 2022-01-10 08:02 | Anesthesia Day of Surgery ---
Anesthesia Day of Surgery - Day of Surgery Patient Examined: Yes Patient H&P Reviewed: Yes Patient is NPO: Yes
--- NOTE | 2022-01-10 08:03 | Anesthesia Consultation ---
Anesthesia Consult and Med Hx - Airway Anesthetic Teeth Evaluation: Edentulous ROM Head & Neck: Adequate Mental/Hyoid Distance: Adequate Mallampati Class: Class II Intubation Access Assessment: Good - Pulmonary Exam CTA: Yes - Cardiac Exam Cardiac Exam: RRR - Pre-Operative Health Status ASA Pre-Surgery Classification: ASA2 Proposed Anesthetic Plan: MAC - Pulmonary Hx Smoking: Yes Hx Respiratory Symptoms: Yes COPD: Yes (maintenance and rescure inhalers) Hx Sleep Apnea: (HIGH RISK) - Cardiovascular System Hx Hypertension: Yes - Central Nervous System CVA: No Hx Back Pain: Yes Hx Psychiatric Problems: Yes (Anxiety/Depression) - Gastrointestinal Hx Gastroesophageal Reflux Disease: Yes (dysphagia leading to hoarseness) - Endocrine Hx Renal Disease: No Hx Liver Disease: No Hx Insulin Dependent Diabetes: No Hx Non-Insulin Dependent Diabetes: No Hx Thyroid Disease: No - Other Systems Hx Cancer: No
[2022-01-10] MEDS ORDERED: MIDAZOLAM 2 MG/2 ML INJ ONE (08:04)
[2022-01-10] MEDS ORDERED: LIDOCAINE MPF (2%) 20 MG/1 ML VIAL 5 ML ONE (08:04)
[2022-01-10] MEDS ORDERED: propofoL 200 MG/20 ML VIAL IV ONE (08:05)
--- NOTE | 2022-01-10 09:44 | Procedure Note ---
Date of procedure: 01/10/22 Pre-op diagnosis: Abdominal Pain/ F/H/O Cancer/ P/H/O Duodenal Ulcer/ Colon Polyp Screening Post-op diagnosis: other (No Peptic Ulcer disease noted/ ild to Moderate Erosive esophagitis/ Gastritis/R/O Celiac Disease/ RT/O Eosinophilic Esophagitis/ Solitary, Small Cecal Polyp/ Proximal Colon Diverticular Disease/ R/O Microscopic colitis/ No Internal Hemorhhoids noted) Procedure: EGD with Biopsy/ Colonoscopy with Cold biopsy Anest[place]: [facility] [place] Surgeon: NADIYA KESSLER Estimated blood loss: minimal Pathology: list Specimen disposition: to lab Condition: stable Disposition: same day (Encourage fiber intake, treat with PPI,prn Bentyl and OTC Probiotic. Avoid aspirin and NSAID for 5days; otherwise resume previous medication and F/U in 1 to 2weeks ([phone]).)
[2022-01-10 10:49] VITALS: BP 121/70
--- NOTE | 2022-01-10 12:25 | Operative Report ---
DATE OF SURGERY: 01/10/2022 PROCEDURE PERFORMED: EGD with biopsy. INDICATIONS: This is a 61-year-old -[place] female with a strong family history of cancer. Several members of her family have had stomach cancer as well as breast cancer. She has a prior history of duodenal ulcer. EGD was done to make sure there was not any significant upper GI pathology present. DESCRIPTION OF PROCEDURE: Procedure was done after getting informed consent with MAC anesthesia. Instrument was passed through the hypopharynx into the esophagus, which showed some tlry-sy-kdfyodhm distal erosive esophagitis. Photodocumentation was obtained and biopsy was also done to assess for the severity of the erosive esophagitis. Additional biopsy was done from the mid esophagus to rule out for eosinophilic esophagitis. Stomach showed gastritis, but no ulcers in the straight or the retroverted view. Biopsy was done from the gastric antrum, gastric body and angular incisura to rule out for H. pylori and atrophic gastritis. The pylorus was patent. The duodenum in the first and second portion appeared normal. Biopsy was done from the second part to rule out for possible celiac disease. There was minimal bleeding associated with the procedure. No complications associated with the procedure. ASSESSMENT: Abdominal pain, family history of stomach cancer; history of duodenal ulcer, none now; fjry-ti-piportgv erosive esophagitis; gastritis; rule out celiac disease. PLAN: To wait for the biopsy results. Further treatment adjustment will be according to the biopsy findings. The patient will be advised to avoid aspirin and aspirin-related products for the next few days. The patient is to be treated with PPI and p.r.n. dose of Bentyl for treatment of abdominal pain. Also, the patient will be encouraged to take fiber supplements. A colonoscopy is to be done as part of colon polyp screening because of the patient's strong family history of cancer and also to rule out for any associated colitis, accounting for the patient's abdominal pain. Procedure was done in the GI lab with assistance of the GI lab team, which included the GI nurse, the dental technician instructor and with assistance of anesthesia. TID: [id number] RECEIPT: [id number] SHEKHAR/CATHI
--- NOTE | 2022-01-10 13:45 | Operative Report ---
DATE OF SURGERY: 01/10/2022 PROCEDURE: Colonoscopy. INDICATIONS: This is a 61-year-old -[place] female who had an EGD done prior to the colonoscopy. She does give a strong family history of stomach cancer and other cancers. EGD had shown wsnl-zz-ehewdwhy erosive esophagitis and gastritis. No peptic ulcer disease was noted. Colonoscopy was done to make sure there was not any significant lower GI pathology present. Initial rectal examination was unremarkable. DESCRIPTION OF PROCEDURE: Instrument was passed through the rectum onto the cecum, which was identified with ileocecal valve and appendiceal orifice. Visualization was fair to good. There was a solitary cecal polyp noted that was removed by cold biopsy. There were a few diverticula also noted in the proximal colon. Assessment was diverticula in the cecum and proximal colon, remaining part of the proximal colon appeared normal as did the transverse colon, there was a solitary small diverticula noted in the proximal descending colon. Remaining part of the left colon and the rectum showed normal mucosa. There were no internal hemorrhoids noted on the retroverted view. Random biopsies were done throughout the colon with minimal bleeding to rule out for possible microscopic colitis. ASSESSMENT: Colon polyp screening, family history of cancer. Abdominal pain, solitary cecal polyp, proximal colon diverticula, rule out microscopic colitis. No internal hemorrhoids noted. PLAN: Treat the patient with PPI. Encouraged the patient to take fiber supplements. Treat the patient with p.r.n. dose of Bentyl because of abdominal pain and the patient to avoid aspirin and aspirin-related products and to follow up in the office in 1-2 weeks' time. Procedure was done in the GI lab with assistance of the GI lab team, which included the GI nurse, the technology teacher and with assistance of anesthesia. TID: [id number] RECEIPT: [id number] SHEKHAR/KATHY/ANGLE
== END 2022-01-10 10:25 | disposition home or self-care (01) ==
LOC: GIO 07:37
DX: R10.9 Unspecified abdominal pain (principal); K59.00 Constipation, unspecified; K64.8 Other hemorrhoids; K21.00 Gastro-esophageal reflux disease with esophagitis, without bleeding; K57.30 Diverticulosis of large intestine without perforation or abscess without bleeding; K63.5 Polyp of colon; K29.70 Gastritis, unspecified, without bleeding; K27.7 Chronic peptic ulcer, site unspecified, without hemorrhage or perforation; F17.210 Nicotine dependence, cigarettes, uncomplicated; G62.9 Polyneuropathy, unspecified; I10 Essential (primary) hypertension; J44.9 Chronic obstructive pulmonary disease, unspecified; G47.30 Sleep apnea, unspecified; K52.9 Noninfective gastroenteritis and colitis, unspecified; F32.9 Major depressive disorder, single episode, unspecified; Z79.899 Other long term (current) drug therapy; Z80.0 Family history of malignant neoplasm of digestive organs; Z98.890 Other specified postprocedural states; Z90.710 Acquired absence of both cervix and uterus
CPT/HCPCS: 43239; 45380; 88305; J2250; J2704; J7030

== ENCOUNTER 2022-02-05 08:55 | Outpatient (CLI) | payer MEDICAID ==
[2022-02-05 10:13] LABS: Blood Urea Nitrogen 16 mg/dL (7-17); Calcium 9.3 mg/dL (8.4-10.2); Hemolysis Index 2
[2022-02-05 10:29] LABS: BUN/Creatinine Ratio 23
== END 2022-02-05 08:56 | disposition home or self-care (01) ==
LOC: LAB 08:55
PROVIDERS: ATTEND Internal Medicine
DX: R73.03 Prediabetes (principal)
CPT/HCPCS: 36415; 80048

== ENCOUNTER 2022-02-06 10:22 | Outpatient (CLI) | payer MEDICAID ==
--- NOTE | 2022-02-06 12:36 | Cat Scan Report ---
CT ABDOMEN AND PELVIS WITH CONTRAST HISTORY: R19.00 INTRA ABDOMINAL/PELVIC SWELLING,MASS LUMP. COMPARISON: CT abdomen/pelvis from 08/30/2018 TECHNIQUE: CT images of the abdomen and pelvis were obtained following administration of intravenous contrast. All CT scans at this location are performed using CT dose reduction for ALARA by means of automated exposure control. CONTRAST: 100 ml of intravenous contrast administered. FINDINGS: Lungs/bones: Tiny calcified granuloma in the right lower lobe and stable. Fissural nodule tracking a long the right major fissure. Left lung base is clear. No acute osseous abnormality identified. Mild DJD in the lumbar spine. Abdomen/pelvis: Simple cyst in the right lobe of the liver. Liver is also mildly enlarged. The gallb ladder, spleen, biliary tree, pancreas, adrenals, kidneys, and proximal GI tract appear unremarkable. Urinary bladder is unremarkable. Uterus is surgically absent. No pelvic free fluid. No acute colonic abnormality. Appendix is normal. IMPRESSION: 1. No acute abnormality identified. Signer Name: Hebert Allen MD Signed: 02/06/2022 12:31 PM Workstation Name: [id number]
--- NOTE | 2022-02-06 16:57 | Mammography Report ---
DIGITAL SCREENING MAMMOGRAM WITH CAD, 02/06/2022 CLINICAL INFORMATION / INDICATION: Routine screening mammography. SCREENING MAMMOGRAM Z12.31 TECHNIQUE: Digital bilateral 2D mammography was obtained in the craniocaudal and mediolateral obliqu e projections. This examination was interpreted with the benefit of Computer-Aided Detection analysis . COMPARISON: 04/18/2020 FINDINGS: Breast Density: There are scattered areas of fibroglandular density. No dominant mass, suspicious calcifications, or architectural distortion in the left breast. Stable b enign nodule, upper outer left breast. There are 2 masses in the lower inner quadrant of the right breast, measuring 11 and 7 mm respectivel y. One of these most likely represents the cluster of cysts identified on prior ultrasound of 020 Recommend right breast ultrasound for further evaluation of these 2 nodules in the lower inner quadra nt, right breast. IMPRESSION: 2 right breast nodules, lower inner quadrant, middle depth. Recommend further evaluate wi th ultrasound, and possibly spot compression imaging.. Follow up recommendation: Ultrasound BI-RADS Category 0: INCOMPLETE. Needs additional imaging evaluation and/or prior mammograms for kamaljit quiroz. A "normal" or negative report should not discourage follow up or biopsy of a clinically significant f inding. A written summary of these findings will be mailed to the patient. The patient will be entered into a mammography reporting system which will generate a reminder letter for the patient's next appointmen t at the appropriate interval. The [employer] recommends yearly mammograms starting at age 40 and continuing as l lelo as a woman is in good health. Breast MRI is recommended for women with an approximate 20-25% or greater lifetime risk of breast cancer, including women with a strong family history of breast or ova kade cancer or who have been treated for Hodgkin's disease. Signer Name: Usha Butts MD Signed: 02/06/2022 4:53 PM Workstation Name: [id number]
== END 2022-02-06 10:23 | disposition home or self-care (01) ==
LOC: CT 10:22
PROVIDERS: ATTEND Internal Medicine
DX: K76.89 Other specified diseases of liver (principal); N63.14 Unspecified lump in the right breast, lower inner quadrant; R19.00 Intra-abdominal and pelvic swelling, mass and lump, unspecified site
CPT/HCPCS: 74177; 77067; Q9967